=== PATIENT | female | born 1995 | race Caucasian/White ===

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

== ENCOUNTER 2017-09-29 15:56 | Emergency (ER) | payer OTHER ==
[~2017-09-29] VITALS: Ht 160 cm; Wt 47.9 kg
[~2017-09-29 15:56] MED LIST changes: +ONDA4TAB8 PO
[2017-09-29 16:01] VITALS: Ht 160 cm; Wt 47.9 kg
[2017-09-29] MEDS ORDERED: ONDANSETRON (ODT) 4 MG TAB ODT STA (16:55)
[2017-09-29] MEDS ORDERED: FAMOTIDINE 20 MG TAB PO STA (16:55)
[2017-09-29] MEDS ORDERED: ONDA4TAB14 PO (16:59)
--- NOTE | 2017-09-29 18:45 | ERD ---
ER Documentation Chief Complaint Chief Complaint abd pain with vomiting onset 0200 am HPI Is a 22-year-old female with history of gastritis presenting to the emergency department complaining of mild epigastric abdominal pain with nonbilious nonbloody vomiting since 2:00 this morning. Patient denies any fevers, diarrhea. She denies any history of abdominal surgeries. Patient states that she usually takes Protonix and Bentyl for gastritis however she did not take any medications today ROS All systems reviewed and are negative except as per history of present illness. Medications Home Meds Active Scripts Ondansetron (Ondansetron Odt) 4 Mg Tab.rapdis, 4 MG PO Q6H Y for NAUSEA AND/OR VOMITING, #20 TAB Prov:SOFIA BARAKAT PA-C 09/29/17 Ondansetron Hcl* (Zofran*) 4 Mg Tablet, 4 MG PO Q6H for NAUSEA AND/OR VOMITING, #10 TAB Prov:RADHA PAEZ, SWEEP MOLDER 10/14/16 Promethazine w/Codeine* (Phenergan w/Codeine* Syrup) 473 Ml Syrup, 10 ML PO Q6H Y for COUGH, #120 ML Prov:JARAD STONER MD 10/23/15 Azithromycin* (Zithromax*) 250 Mg Tablet, 250 MG PO .ZPACK DIRECTED, #6 TAB TAKE 500 MG (2 TABS) THE FIRST DAY THEN 250 MG (1 TAB) DAYS 2-5 Prov:JARAD STONER MD 10/23/15 Allergies Allergies: Coded Allergies: No Known Allergies (Verified Allergy, Mild, 10/23/15) PMhx/Soc History of Surgery: No Anesthesia Reaction: No Hx Neurological Disorder: No Hx Respiratory Disorders: No Hx Cardiac Disorders: No Hx Psychiatric Problems: No Hx Miscellaneous Medical Probl: No Hx Alcohol Use: Yes Hx Substance Use: No Hx Tobacco Use: No Physical Exam Vitals Vital Signs Date Time Temp Pulse Resp B/P Pulse Ox O2 Delivery O2 Flow Rate FiO2 09/29/17 16:01 98.6 115 18 117/73 98 Physical Exam Const: [Well-developed well-nourished no acute distress, well-appearing Head: Atraumatic Eyes: Normal Conjunctiva ENT: Normal External Ears, Nose and Mouth. Neck: Full range of motion..~ No meningismus. Resp: Clear to auscultation bilaterally Cardio: Regular rate and rhythm, no murmurs Abd: Soft, non distended. Normal bowel sounds Patient did not exhibit much tenderness when I palpated her abdomen, she is mildly tender in the epigastric region Skin: No petechiae or rashes Back: No midline or flank tenderness Ext: No cyanosis, or edema Neur: Awake and alert Psych: Normal Mood and Affect Results 24 hrs Current Medications Medications (Trade) Dose Ordered Sig/Rebecca Route PRN Reason Start Time Stop Time Status Last Admin Dose Admin Ondansetron HCl (Zofran Odt) 4 mg ONCE STAT ODT 09/29/17 16:55 09/29/17 16:56 DC 09/29/17 17:00 Famotidine (Pepcid) 20 mg ONCE STAT PO 09/29/17 16:55 09/29/17 16:56 DC 09/29/17 17:00 Procedures/MDM This is a 22-year-old female presenting to the emergency department with epigastric abdominal pain and nonbilious nonbloody vomiting for 1 day, differentials include but not limited to gastroenteritis, gastritis. There is no evidence of appendicitis or other acute abdominal conditions at this time. In the ED patient was given Zofran and pass the fluid challenge test. A prescription for Zofran was provided. She stable to discharged home to follow- up with primary care physician with return precautions Departure Diagnosis: Primary Impression: Nausea & vomiting Condition: Stable Patient Instructions: Nausea and Vomiting-Adult, Diet, Vomiting Or Diarrhea [ 6Yr-Adult], Gastroenteritis, Viral (6Y-Adult) Additional Instructions: FOLLOW UP WITH YOUR PRIMARY CARE PHYSICIAN TOMORROW.Return to this facility if you are not improving as expected. Take all medicines as directed. Return to this facility if you are not improving as expected. SOFIA BARAKAT PA-C Sep 29, 2017 18:45
== END 2017-09-29 17:35 | disposition home or self-care (01) ==
LOC: FTE 15:56
DX: R11.2 Nausea with vomiting, unspecified (principal)
CPT/HCPCS: Z7502; Z7610; 99283